=== PATIENT | female | born 1985 | race Caucasian/White ===

== ENCOUNTER 2020-06-02 10:22 | Outpatient (CLI) | payer OTHER, SELFPAY ==
--- NOTE | 2020-06-02 12:00 | NEURO_ITS ---
Impression: # Complains of nocturnal paresthesia and pain in hands. 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 # No ulnar neuropathy. # Normal needle/EMG exam. Nerve Conduction Studies Anti Sensory Summary Table Stim Site NR Peak (ms) P-T Amp (?V) Site1 Site2 Delta-P (ms) Dist (cm) Jimmy (m/s) Left Median Anti Sensory (2-3nd Digit) Wrist 2.9 79.5 Wrist 2-3nd Digit 2.9 14.0 48 Wrist 2.9 95.2 Wrist 2-3nd Digit 2.9 14.0 48 Right Median Anti Sensory (2-3nd Digit) Wrist 3.6 25.6 Wrist 2-3nd Digit 3.6 14.0 39 Wrist 4.6 17.0 Wrist 2-3nd Digit 3.6 14.0 39 Left Radial Anti Sensory (Base 1st Digit) Wrist 1.9 25.1 Wrist Base 1st Digit 1.9 0.0 Right Radial Anti Sensory (Base 1st Digit) Wrist 2.0 18.3 Wrist Base 1st Digit 2.0 0.0 Left Ulnar Anti Sensory (5th Digit) Wrist 2.3 80.1 Wrist 5th Digit 2.3 14.0 61 Right Ulnar Anti Sensory (5th Digit) Wrist 2.2 68.9 Wrist 5th Digit 2.2 14.0 64 Motor Summary Table Stim Site NR Onset (ms) O-P Amp (mV) Site1 Site2 Delta-0 (ms) Dist (cm) Jimmy (m/s) Left Median Motor (Abd Poll Brev) Wrist 3.2 5.0 Elbow Wrist 4.8 28.0 58 Elbow 8.0 10.6 Right Median Motor (Abd Poll Brev) Wrist 3.4 6.7 Elbow Wrist 4.5 26.0 58 Elbow 7.9 4.1 Left Ulnar Motor (Abd Dig Minimi) Wrist 2.3 6.8 A Elbow Wrist 4.9 28.0 57 A Elbow 7.2 7.0 Right Ulnar Motor (Abd Dig Minimi) Wrist 2.5 7.6 A Elbow Wrist 4.8 28.0 58 A Elbow 7.3 6.7 F Wave Studies NR F-Lat (ms) L-R F-Lat (ms) Left Median (Mrkrs) (Abd Poll Brev) 27.33 0.43 Right Median (Mrkrs) (Abd Poll Brev) 26.90 0.43 Left Ulnar (Mrkrs) (Abd Dig Min) 26.72 0.47 Right Ulnar (Mrkrs) (Abd Dig Min) 27.19 0.47 EMG Side Muscle Nerve Root Ins Act Fibs Amp Dur Recrt Comment Right 1stDorInt Ulnar C8-T1 Nml Nml Nml Nml Nml Right Ext Indicis Radial (Post Int) C7-8 Nml Nml Nml Nml Nml Right Ext Digitorum Radial (Post Int) C7-8 Nml Nml Nml Nml Nml Right BrachioRad Radial C5-6 Nml Nml Nml Nml Nml Right PronatorTeres Median C6-7 Nml Nml Nml Nml Nml Right Abd Poll Brev Median C8-T1 Nml Nml Nml Nml Nml Left 1stDorInt Ulnar C8-T1 Nml Nml Nml Nml Nml Left Ext Indicis Radial (Post Int) C7-8 Nml Nml Nml Nml Nml Left Ext Digitorum Radial (Post Int) C7-8 Nml Nml Nml Nml Nml Left BrachioRad Radial C5-6 Nml Nml Nml Nml Nml Left PronatorTeres Median C6-7 Nml Nml Nml Nml Nml Left Abd Poll Brev Median C8-T1 Nml Nml Nml Nml Nml Right ABD Dig Min Ulnar C8-T1 Nml Nml Nml Nml Nml Left ABD Dig Min Ulnar C8-T1 Nml Nml Nml Nml Nml MTDD
== END 2020-06-02 10:23 | disposition home or self-care (01) ==
LOC: ANHNEURO 10:23
PROVIDERS: PCP Physician Assistant; Visit Provider Physician Assistant
DX: M67.839 Other specified disorders of synovium and tendon, unspecified wrist (principal); G56.01 Carpal tunnel syndrome, right upper limb
CPT/HCPCS: 95886; 95911

== ENCOUNTER 2021-03-30 07:11 | Emergency (ER) | payer OTHER, SELFPAY ==
--- NOTE | ~2021-03-30 | CT_ITS ---
EXAMINATION: CT brain wo con EXAM DATE: 03/30/2021 08:08 INDICATION: Left head paresthesia. TECHNIQUE: Spiral CT of the head was performed without contrast. Axial, coronal and sagittal images were reviewed. The dose-length product (DLP) for this examination was 605.33 mGy-cm. The exposure w as tailored according to patient size, and iterative reconstruction (ASIR) was used as additional dos e reduction technique. There is no prior study for comparison. FINDINGS: There is no acute intraparenchymal hemorrhage. No evidence of intraparenchymal brain mass lesion. No evidence of acute infarction. There is no mass effect or midline shift. The ventricles are normal in size. There are no extra-axial collections. There are no acute calvarial fractures. T he orbits are unremarkable. Soft tissue is unremarkable. The visualized sinuses and mastoid air avril ls are well aerated. IMPRESSION: 1. Normal head CT examination. Reviewed, dictated and finalized at location B. IER PACKER
--- NOTE | ~2021-03-30 | XR_ITS ---
EXAMINATION: XR chest 2V EXAM DATE: 03/30/2021 08:00 INDICATION: Mid chest pain. TECHNIQUE: Frontal and lateral projections of the chest obtained and reviewed. There is no prior loki dy for comparison. FINDINGS: The lungs are clear. There are no pleural effusions. The cardiomediastinal silhouette is within normal limits. There is no pneumothorax suspected. The bones and soft tissues are unremarkab le. IMPRESSION: Normal chest x-ray exam. Reviewed, dictated and finalized at location B. AL WORK MANAGER IMPRESSION: Normal chest x-ray exam.
[2021-03-30 07:27] VITALS: PULSE 93
--- NOTE | 2021-03-30 07:27 | ECG_ITS ---
Measurements Intervals [place] Rate: 90 P: 68 ID: 138 QRS: 12 QRSD: 91 T: 38 QT: 345 QTc: 424 Interpretive Statements SINUS RHYTHM POSSIBLE LEFT ATRIAL ENLARGEMENT INCOMPLETE RIGHT BUNDLE BRANCH BLOCK DELAYED PRECORDIAL R/S TRANSITION BASELINE ARTIFACT- II, III, AVF BORDERLINE ECG Electronically Signed On 03-30-2021 7:33:42 DRAGSAW OPERATOR by Maksim Welsh D.O.
[2021-03-30 07:32] VITALS: BP 113/77; PULSE 86; RESP 14; O2SAT 98
--- NOTE | 2021-03-30 07:52 | ED.CHESTPAIN ---
HPI - Chest Pain General Chief Complaint: Chest Pain Stated Complaint: Chest pain Time Seen by Provider: 03/30/21 07:39 Source: patient Mode of arrival: ambulatory Limitations: no limitations History of Present Illness HPI narrative: Patient presents with sharp, stabbing, shooting pain at the left chest off and on, every 3 to 4 minutes, worse with taking deep breaths and better laying still. Started 6 AM today after getting to work. Patient was started working November 2020, physical job, repetitive movement using upper extremities. Patient denies any fever, chills, nausea, vomiting, shortness of breath, back pain. Patient reports numbness left side of the head for the last 2 to 3 weeks which is constant, denies any vision abnormality, trouble breathing or swallowing. The numbness associated with dull aching pain at the left ear, no ear discharge Related Data Home Medications Medication Instructions Recorded Confirmed buprenorphine-naloxone film 03/30/21 drospirenone-ethinyl estradiol tablet 03/30/21 gabapentin 03/30/21 quetiapine 03/30/21 quetiapine 03/30/21 Allergies Allergy/AdvReac Type Severity Reaction Status Date / Time No Known Allergies Allergy Verified 03/30/21 07:38 Review of Systems Review of Systems: CONSTITUTIONAL: Denies fever, chills, or sweats. EYES: Denies visual changes, redness, or discharge. ENT: Denies rhinorrhea, congestion, sore throat, or otalgia. CARDIOVASCULAR: Denies chest pain, palpitations, or edema. RESPIRATORY: Denies cough or dyspnea. GASTROINTESTINAL: Denies abdominal pain, nausea, vomiting, or diarrhea. GENITOURINARY: Denies dysuria or hematuria. SKIN: Denies rash or itching. MUSCULOSKELETAL: Denies back pain, joint pain, or myalgia. NEUROLOGIC: Denies headache, numbness, or weakness. PSYCHIATRIC: Denies anxiety or depression. Exam Narrative: General appearance: Well-developed, well-nourished Skin: Normal color Head: Normocephalic, nontraumatic Eyes: Clear conjunctiva ENT: Oropharynx normal, ears normal, nose normal Neck: Supple, nontender Chest and respiratory: Mild tenderness left upper chest, no bruises or swelling. Heart: Regular rate/rhythm Abdomen: Soft, nontender, no organomegaly, quiet bowel sounds Vascular: Normal peripheral pulses, normal capillary refill. Musculoskeletal: Normal range of motion, nontender back Neurologic: Alert and oriented ?3, INSTRUCTOR PRIVATE is normal as tested, no gross motor deficit Course Course Emergency Course: Stable Vital Signs Vital signs: Vital Signs Pulse Rate 93 03/30/21 07:27 Temperature 36.2 C L 03/30/21 08:40 Pulse Rate 86 03/30/21 07:32 Respiratory Rate 14 03/30/21 07:32 Blood Pressure 113/77 03/30/21 07:32 Pulse Oximetry 98 03/30/21 07:32 MDM - Chest Pain MDM Narrative Medical decision making narrative: Chest wall pain is my concern Differential Diagnosis Differential diagnosis: Likely atypical chest pain and chest pain Lab Data Result diagrams: 03/30/21 08:33 03/30/21 08:33 Labs: Lab Results 03/30/21 03/30/21 03/30/21 Range/Units 08:33 08:33 08:33 WBC 7.8 (4.5-10.0) K/mm3 RBC 4.15 L (4.2-5.4) M/mm3 Hgb 12.9 (12.0-15.0) g/dL Hct 37.7 (37.0-47.0) % MCV 90.8 (80-100) fl MCH 31.1 (26-34) pg MCHC 34.2 (32-36) g/dl RDW 12.4 (11.5-14.5) % Plt Count 204 (150-375) k/mm3 MPV 9.7 (7.4-10.4) fl Immature Gran % (Auto) 0.1 (0-0.5) % Neut % (Auto) 65.3 (45.5-73.1) % Lymph % (Auto) 25.9 (18.3-44.2) % [place] % (Auto) 6.7 (2.6-8.5) % Eos % (Auto) 1.2 (0-4.4) % Baso % (Auto) 0.8 (0.2-1.2) % Lymph # (Auto) 2.02 (0.9-3.2
[2021-03-30] MEDS: ACETAMINOPHEN 325 MG TABLET 650 MG PO (08:14)
[2021-03-30] MEDS: IBUPROFEN 600 MG TABLET PO (08:14)
[2021-03-30 08:40] VITALS: TEMP 36.2
[2021-03-30 08:41] LABS: Basophils Absolute Auto 0.1 K/mm3 (0.0-0.1); Basophils Percent Auto 0.8 % (0.2-1.2); Eosinophils Absolute Auto 0.1 K/mm3 (0-0.3); Eosinophils Percent Auto 1.2 % (0-4.4); Hematocrit 37.7 % (37.0-47.0); Hemoglobin 12.9 g/dL (12.0-15.0); Immature Granulocyte Absolute 0.01 K/mm3 (0.00-0.031); Immature Granulocyte Percent A 0.1 % (0-0.5); Lymphocytes Absolute Auto 2.02 K/mm3 (0.9-3.2); Lymphocytes Percent Auto 25.9 % (18.3-44.2); Mean Corpuscular HGB Conc 34.2 g/dl (32-36); Mean Corpuscular Hemoglobin 31.1 pg (26-34); Mean Corpuscular Volume 90.8 fl (80-100); Mean Platelet Volume 9.7 fl (7.4-10.4); Monocytes Absolute Auto 0.5 K/mm3 (0.1-0.6); Monocytes Percent Auto 6.7 % (2.6-8.5); Neutrophils Absolute Auto 5.1 K/mm3 (1.3-6.7); Neutrophils Percent Auto 65.3 % (45.5-73.1); Platelet Count Result 204 k/mm3 (150-375); Red Blood Count 4.15 M/mm3 (4.2-5.4); Red Cell Distribution Width 12.4 % (11.5-14.5); White Blood Count 7.8 K/mm3 (4.5-10.0)
[2021-03-30 08:50] LABS: Prothrombin Time 12.6 Seconds (11.1-14.7)
[2021-03-30 08:51] LABS: Partial Thromboplastin Time 25.7 SECONDS (22.3-36.8)
[2021-03-30 08:52] LABS: Anion Gap 7 mmol/L (8-16); Blood Urea Nitrogen 12 mg/dL (7-17); Calcium 8.9 mg/dL (8.4-10.2); Carbon Dioxide 24 mmol/L (22-30); Chloride 102 mmol/L (98-107); Estimated CRCL calculation 90 ml/min; Estimated Glomerular Filt Rate > 60; Glucose 85 mg/dL (65-110); Potassium 4.1 mmol/L (3.4-5.0); Sodium 133 mmol/L (137-145)
[2021-03-30 09:05] LABS: Troponin I < 0.012 ng/mL (0.000-0.034)
[2021-03-30 09:38] VITALS: BP 98/63; PULSE 83; RESP 14; O2SAT 97
== END 2021-03-30 09:40 | disposition home or self-care (01) ==
PROVIDERS: Emergency Provider Emergency Medicine; PCP Physician Assistant
DX: R20.2 Paresthesia of skin (principal); R07.89 Other chest pain
CPT/HCPCS: 36415; 70450; 71046; 80048; 84484; 85025; 85610; 85730; 93005; 99284; A9270